=== PATIENT | female | born 1975 | race African-American/Black ===

== ENCOUNTER 2018-04-02 04:22 | Emergency (ER) | payer BC, OTHER ==
[2018-04-02 05:56] LABS: #Eosinphils 0.1 thou/uL (0.0-0.7); #Lymphocytes 2.2 thou/uL (1.20-3.40); #Monocytes 0.5 thou/uL (0.11-0.59); #Neutrophils 2.6 thou/uL (1.40-6.50); %Basophils 0.7 % (0.0-1.0); %Eosinophils 1.3 % (0.0-10.0); %Lymphocytes 41.3 % (21.0-51.0); %Monocytes 8.8 % (0.0-10.0); %Neutrophils 47.9 % (42.0-75.0); Hemoglobin 12.9 g/dL (12.0-16.0); Mean Corpuscular HGB CONC 31.6 g/dL (32.0-36.0); Mean Corpuscular Hemoglobin 27.6 pg (27.0-31.0); Mean Corpuscular Volume 87.4 fL (78.0-98.0); Mean Platelet Volume 8.6 fL (7.4-10.4); Platelet Count 217 thou/uL (130-400); RBC Distribution Width 11.8 % (11.5-14.5); Red Blood Cell (RBC) Count 4.66 mill/uL (4.20-5.40); White Blood Cell (WBC) Count 5.4 thou/uL (4.8-10.8)
[2018-04-02 06:13] LABS: ALT (SGPT) 11 U/L (8-55); AST (SGOT) 16 U/L (5-34); Albumin 3.9 g/dL (3.5-5.0); Alkaline Phosphatase 66 U/L (40-150); Anion Gap 11 mmol/L (10-20); BUN (Urea Nitrogen) 10 mg/dL (7.0-18.7); Bilirubin, Total 0.5 mg/dL (0.2-1.2); Calc. Creatinine Clearance 0 mL/min (70-130); Carbon Dioxide 22 mmol/L (22-29); Chloride 109 mmol/L (98-107); Estimated GFR-MDRD Greater than 90; Globulin 3.6 g/dL (2.4-3.5); Glucose 79 mg/dL (70-105); Lipase 37 U/L (8-78); Potassium 3.9 mmol/L (3.5-5.1); Protein, Total 7.5 g/dL (6.0-8.3); Sodium 138 mmol/L (136-145)
[2018-04-02] MEDS ORDERED: Fentanyl 100 MCG/2 ML VIAL ONE (06:33)
[2018-04-02 07:55] LABS: Bilirubin Negative (Negative); Blood, Urine Negative (Negative); Clarity CLEAR (Clear); Glucose, Urine (Dipstick) Negative (Negative); Leukocyte Negative (Negative); Nitrite Negative (Negative); Protein, Urine (Dipstick) Negative (Neg-Trace)
--- NOTE | 2018-04-02 08:26 | CT ---
PRELIMINARY REPORT/[facility]/EMERGENCY AFTER HOURS PROCEDURE: EXAM: CT Abdomen and Pelvis With Intravenous Contrast EXAM DATE/TIME: 04/02/2018 6:45 AM CLINICAL HISTORY: 42 years old, female; Pain; Abdominal pain; Localized; Left lower quadrant (llq); Prior surgery; Surg dena type: F42 presents to the ed C/O llq abd pain onset wednesday, worsening since. PT reports the pain woke her up from her sleep. PT reports she has decreased po. PT denies n/v/d. PT reports having a tubal ligation and ablation. TECHNIQUE: Axial computed tomography images of the abdomen and pelvis with intravenous contrast. Coronal reforma tted images were created and reviewed. COMPARISON: No relevant prior studies available. FINDINGS: Lower thorax: No acute findings. ABDOMEN: Liver: Unremarkable. Gallbladder and bile ducts: Unremarkable. Pancreas: Unremarkable. Spleen: Unremarkable. Adrenals: Unremarkable. Kidneys and ureters: Normal. Stomach and bowel: Unremarkable. No obstruction. Appendix: Mildly enlarged containing gas proximally and normal in caliber distally without surroundin g inflammatory changes. PELVIS: Bladder: Unremarkable. Reproductive: 1.4 cm hypoattenuating lesion in the uterine fundus compatible with an intramural fibro id. Somewhat irregular centrally located hypodensity within the uterus measuring around 30 HU and 4.3 x 2.2 cm in transverse dimension. ABDOMEN and PELVIS: Intraperitoneal space: No free air. No significant fluid collection. Bones/joints: No acute fracture. No dislocation. Soft tissues: Unremarkable. Vasculature: Unremarkable. Lymph nodes: No enlarged lymph nodes. IMPRESSION: 1. No definite acute findings. 2. Mild enlarged gas containing proximal appendix without surrounding inflammatory changes. 3. Irregular central uterine hypodensity may represent fluid, underlying endometrial lesion not exclu ded. Ultrasound correlation/followup is recommended. Thank you for allowing us to participate in the care of your patient. Dictated and Authenticated by: Dung Castro MD 04/02/2018 7:30 AM Central Time ([place] & [place]) FINAL REPORT CT ABDOMEN AND PELVIS WITH IV CONTRAST: Date: 04/02/18 FINDINGS/IMPRESSION: I agree with the preliminary report given by Jeremy. POS: [facility]
--- NOTE | 2018-04-02 08:54 | ULT ---
ULTRASOUND PELVIC ULTRASOUND TRANSVAGINAL DOPPLER DUPLEX: HISTORY: Pelvic pain in 42-year-old female. Rule out ovarian torsion. TECHNIQUE: Transabdominal transducer used to evaluate intrapelvic contents using the urinary bladder as an acous tic window. Endovaginal transducer used to visualize intrapelvic contents in greater detail. Color fl ow Doppler and Pulsed Doppler spectral waveform analysis of ovaries. FINDINGS: Uterus measures 10 x 4.5 x 6 cm. There is a centrally located structure measuring approximately 4 x 1.8 x 3.3 cm lesion occupying the central portion of the uterine body and fundus which contains heterogeneous, mixed moderately hyperec hoic and moderately hypoechoic, nonshadowing internal contents. Margins are well-circumscribed. It i s uncertain whether this is within the endometrial cavity or is extrinsic to it. The endometrial stri pe itself is difficult to visualize. Off center slightly to the right side in the uterus fundus, there is an approximately 1 x 1 x 1 cm ma ss which is probably a partially calcified small fibroid. No free fluid in the cul-de-sac. Right ovary measures 1.2 x 2.6 x 1.3 cm, with flow demonstrated by Doppler. Left ovary measures 1.4 x 2.4 x 1.2 cm, with flow demonstrated by Doppler. No free fluid in the cul-de-sac. No ovarian cyst identified. IMPRESSION: 1. A moderately large mass occupying the central portion of the uterus, with mixed echogenicity. Unc ertain whether this represents an endometrial neoplastic mass, endometrial hematoma, or fibroid. The appearance would be unusual for a uterine fibroid. 2. No sonographic evidence of ovarian torsion. AMY Portillo POS: [facility]
[2018-04-02] MEDS ORDERED: ISOVUE-370 76%-LOCM 1 ML ONE (12:39)
== END 2018-04-02 09:21 | disposition home or self-care (01) ==
LOC: ERS 04:22
DX: R10.2 Pelvic and perineal pain (principal); G43.909 Migraine, unspecified, not intractable, without status migrainosus; I10 Essential (primary) hypertension; Z79.899 Other long term (current) drug therapy
CPT/HCPCS: 36415; 74177; 76856; 80053; 81003; 83690; 85025; 93976; 96361; 96374; J3010